=== PATIENT | female | born 1960 | race Caucasian/White ===

== ENCOUNTER → 2021-06-18 | Outpatient (CLI) | payer BC ==
[~2021-06-18] VITALS: Ht 170.2 cm; Wt 63.8 kg
[2021-06-18] VITALS (11 sets, daily range): BP systolic 103–134; BP diastolic 57–80; PULSE 52–65
[~2021-06-18] MED LIST: FLORINEF ACETA0.1 MG PO; MYRBETR50MG PO; MYSOLINE 5050 MG/TAB PO; PRIL40 PO; THEROMEGA1000 MG PO; VITAMIN B125000 MCG PO
[2021-06-18 07:53] LABS: PROTHROMBIN TIME 10.6 SECONDS (9.7-12.8)
--- NOTE | 2021-06-18 08:05 | NUR ---
PT TAKEN TO CT AND PLACED ON TABLE. MONITORING EQUIPMENT PLALCED.
== END ==
LOC: COL.RAD 06:22
PROVIDERS: Internal Medicine Gastroenterology
DX: E78.2 Mixed hyperlipidemia (principal); R94.5 Abnormal results of liver function studies; R53.83 Other fatigue; R76.8 Other specified abnormal immunological findings in serum
CPT/HCPCS: J2250; J3010

== ENCOUNTER 2021-06-27 18:50 | Emergency (ER) | payer BC ==
[~2021-06-27] VITALS: Ht 170.2 cm; Wt 62.3 kg
[2021-06-27 19:18] LABS: BASO # 0.1 (0.0-0.2); BASO % 0.5 % (0.0-2.0); EOS # 0.4 (0.0-0.7); EOS % 4.3 % (0-4.0); GRAN # 5.5 (1.4-6.5); GRAN % 57.8 % (42.2-75.2); HEMATOCRIT 42.6 % (37.0-47.0); HEMOGLOBIN 14.2 g/dl (12.5-16.0); LYMPH # 2.8 (1.2-3.4); LYMPH % 29.5 % (20.0-51.0); MEAN CELL VOLUME 86 fl (80.0-100.0); MEAN CORPUSCULAR HEMOGLOBIN 29 pg (27.0-31.0); MEAN CORPUSCULAR HGB CONC 33 g/dl (33.0-37.0); MEAN PLATELET VOLUME 9.4 fl (7.4-10.4); MONO # 0.7 (0.1-0.6); MONO % 7.6 % (1.7-9.3); PLATELET COUNT 410 K/mm3 (130-400); RED BLOOD COUNT 4.95 M/mm3 (4.10-5.30); REDCELL DISTRIBUTION WIDTH-CV 13.5 % (11.5-14.5)
[2021-06-27 19:25] LABS: PROTHROMBIN TIME 10.8 SECONDS (9.7-12.8)
[2021-06-27 19:54] LABS: ALBUMIN 4.1 gm/dL (3.4-4.8); BILIRUBIN,TOTAL 0.2 mg/dL (0.2-1.2); CALCIUM 9.3 mg/dL (8.4-10.2); CREATININE, serum 0.73 mg/dL (0.57-1.11); POTASSIUM 4.1 mmol/L (3.5-4.5); TOTAL PROTEIN 7.6 gm/dL (6.2-8.1)
[2021-06-27 20:02] LABS: TROPONIN-I 0.013 ng/mL (0.00-0.033)
[2021-06-27 22:52] VITALS: BP 118/78; PULSE 63; TEMP 97.9
== END 2021-06-27 22:52 | disposition home or self-care (01) ==
LOC: COL.ER 18:50
PROVIDERS: Emergency Medicine
DX: R07.9 Chest pain, unspecified (principal); Z20.822 Contact with and (suspected) exposure to COVID-19

== ENCOUNTER 2022-05-24 10:16 | Emergency (ER) | payer BC ==
[~2022-05-24] VITALS: Ht 167.6 cm; Wt 65.5 kg
[2022-05-24 11:09] VITALS: TEMP 97.7
[2022-05-24] MEDS ORDERED: ROXICODONE 55 MG/TAB PO (12:57)
[2022-05-24 13:16] VITALS: BP 118/70; PULSE 72
== END 2022-05-24 13:17 | disposition home or self-care (01) ==
LOC: COL.ER 10:16
DX: U07.1 COVID-19 (principal); Z87.891 Personal history of nicotine dependence; Z88.6 Allergy status to analgesic agent; Z88.2 Allergy status to sulfonamides; Z73.0 Burn-out
CPT/HCPCS: Q0222

== ENCOUNTER → 2023-12-10 | Outpatient (CLI) | payer BC ==
[~2023-12-10] MED LIST changes: +FLEXERIL 1010 MG/TAB PO; +MEDROL 4MG DOSPA4 MG PO; +NORCO 325 MG-51 TAB PO; +ROXICODONE 55 MG/TAB PO
== END ==
LOC: COL.RAD 07:19
DX: M47.816 Spondylosis without myelopathy or radiculopathy, lumbar region (principal); M51.36 Other intervertebral disc degeneration, lumbar region; M48.061 Spinal stenosis, lumbar region without neurogenic claudication

== ENCOUNTER 2023-12-12 10:59 | Emergency (ER) | payer BC ==
[~2023-12-12] VITALS: Ht 167.6 cm; Wt 65.5 kg
[~2023-12-12 10:59] MED LIST changes: -FLEXERIL 1010 MG/TAB PO
[2023-12-12 11:07] VITALS: TEMP 97.6
[2023-12-12] MEDS ORDERED: Ketorolac 30 MG/ML VIAL IM ONE (11:30)
[2023-12-12 11:54] LABS: BASO # 0.1 K/mm3 (0.0-0.2); BASO % 0.8 % (0.0-2.0); EOS # 0.1 K/mm3 (0.0-0.7); EOS % 2.2 % (0.0-4.0); GRAN # 4.2 K/mm3 (1.4-6.5); HEMATOCRIT 41.2 % (37.0-47.0); HEMOGLOBIN 13.5 g/dl (12.5-16.0); LYMPH # 1.4 K/mm3 (1.2-3.4); LYMPH % 22.2 % (20.0-51.0); MEAN CELL VOLUME 88 fl (80.0-100.0); MEAN CORPUSCULAR HEMOGLOBIN 29 pg (27-31); MEAN CORPUSCULAR HGB CONC 33 g/dl (33.0-37.0); MEAN PLATELET VOLUME 9.4 fl (7.4-10.4); MONO # 0.5 K/mm3 (0.1-0.6); MONO % 8.5 % (1.7-9.3); PLATELET COUNT 422 K/mm3 (130-400); RED BLOOD COUNT 4.71 M/mm3 (4.10-5.30); REDCELL DISTRIBUTION WIDTH-CV 13.8 % (11.5-14.5)
[2023-12-12 12:10] LABS: ALBUMIN 4.5 gm/dL (3.4-4.8); BILIRUBIN,TOTAL 0.4 mg/dL (0.2-1.2); CREATININE, serum 0.81 mg/dL (0.57-1.11); POTASSIUM 4.7 mmol/L (3.5-4.5); TOTAL PROTEIN 7.5 gm/dL (6.2-8.1)
[2023-12-12 12:33] LABS: URINE APPEARANCE CLEAR (CLEAR/HAZY); URINE BLOOD NEGATIVE (NEGATIVE); URINE COLOR YELLOW (YELLOW); URINE GLUCOSE NEGATIVE (NEGATIVE); URINE KETONE NEGATIVE (NEGATIVE); URINE NITRATE NEGATIVE (NEGATIVE); URINE PROTEIN(semi-quant) NEGATIVE (NEGATIVE); URINE UROBILINOGEN 0.2 E.U/dL (0.2-1.0)
[2023-12-12 13:02] LABS: COLLECTION METHOD CLEAN CATCH
[2023-12-12] MEDS ORDERED: FLEXERIL 1010 MG/TAB PO (13:11)
[2023-12-12] MEDS ORDERED: ROXICODONE 55 MG/TAB PO ×2 (13:11→13:12)
[2023-12-12 13:35] VITALS: BP 121/85; PULSE 63
== END 2023-12-12 13:36 | disposition home or self-care (01) ==
LOC: COL.ER 10:59
PROVIDERS: Nurse Practitioner
DX: M54.6 Pain in thoracic spine (principal)
CPT/HCPCS: J1885; J2360